=== PATIENT | male | born 1965 | race Caucasian/White ===

== ENCOUNTER 2017-03-05 08:00 | Day surgery (SDC) | payer BC ==
[~2017-03-05 08:00] MED LIST: Lactated Ringers 1,000 ML IV SCH; Propofol 200 MG/20 ML SDV ONE; Sodium Chloride 0.9% 10 ML Syringe FLUSH PRN
[2017-03-05] MEDS ORDERED: Propofol 200 MG/20 ML SDV ONE ×2 (08:40→09:07)
--- NOTE | 2017-03-05 09:11 | PCM.PN ---
- General Info Date of Service: 03/05/17 - Review of Systems Systems Review Comment:: 51 y/o male here for initial screening colonoscopy. He denies any family history of colon cancer. He denies any recent bowel symptoms. I have discussed the proposed colonoscopy with the patient. Risks such as but not limited to bleeding and GI injury discussed and he agrees to proceed. The patient has had no recent significant changes to his health status. - Patient Data Vitals - Most Recent: Last Vital Signs Temp 97.8 F 03/05/17 08:27 Pulse 60 03/05/17 08:27 Resp 20 03/05/17 08:27 BP 120/85 03/05/17 08:27 Pulse Ox 98 03/05/17 08:27 Weight - Most Recent: 79.379 kg Med Orders - Current: Current Medications Lactated Ringer's (Ringers, Lactated) 1,000 mls @ 125 mls/hr IV ASDIRECTED FILEMON Last Admin: 03/05/17 08:48 Dose: 125 mls/hr Sodium Chloride (Saline Flush) 10 ml FLUSH ASDIRECTED PRN PRN Reason: Keep Vein Open Discontinued Medications Propofol (Diprivan 20 Ml) Confirm Administered Dose 400 mg .ROUTE .STK-MED ONE Stop: 03/05/17 07:58 Propofol (Diprivan 20 Ml) Confirm Administered Dose 200 mg .ROUTE .STK-MED ONE Stop: 03/05/17 08:41 - Problem List Review Problem List Initiated/Reviewed/Updated: Yes - My Orders Last 24 Hours: My Active Orders 03/05/17 08:00 Patient Status [ADT] Routine Peripheral IV Care [RC] . DIRECTED Verify Patient Consent Obtain [RC] ASDIRECTED Lactated Ringers [Ringers, Lactated] 1,000 ml IV ASDIRECTED Sodium Chloride 0.9% [Saline Flush] 10 ml FLUSH ASDIRECTED PRN Peripheral IV Insertion Adult [OM.PC] Routine - Assessment Assessment:: Colon cancer Screening - Plan Plan:: Colonoscopy
--- NOTE | 2017-03-05 09:49 | PCM.OPNOTE ---
- General Post-Op/Procedure Note Date of Surgery/Procedure: 03/05/17 Operative Procedure(s): Colonoscopy with Polypectomy Findings: Small Rectal Polyps Moderate Diverticulosis Pre Op Diagnosis: Colon Cancer Screening Post-Op Diagnosis: Polyps. Diverticulosis Anesthesia Technique: MAC Primary Surgeon: Kenji Gant Pathology: Rectal Polyp Output, Urine Amount: 0 EBL in mLs: 0 Complications: None Condition: Good Free Text/Narrative:: Intake & Output 03/04/17 03/05/17 03/05/17 22:59 06:59 14:59 Intake Total 400 Balance 400
[2017-03-05 13:54] VITALS: BP 116/77
--- NOTE | 2017-03-05 14:05 | OR ---
Date of Procedure: 03/05/2017 PREOPERATIVE DIAGNOSIS: Colon cancer screening. POSTOPERATIVE DIAGNOSES: 1. Rectal polyps. 2. Diverticulosis. OPERATION PERFORMED: Colonoscopy with polypectomy. INDICATIONS FOR SURGERY: This 51-year-old male presents for his initial screening colonoscopy. He denies any recent colon symptoms or family history of colon cancer. FINDINGS: Two small polyps were noted in the rectum, these are 4 to 5 mm in size and located 5 to 10 cm from the anal verge. The patient has a moderate degree of diverticulosis, which is concentrated mainly in the left colon, also there are some scattered diverticula on the right side as well. This appears to be without acute inflammation or other complication. PROCEDURE IN DETAIL: The patient was taken to the operating room. He was given intravenous sedation and with him in the left lateral decubitus position, digital rectal exam was performed showing no rectal masses. The Olympus colonoscope was inserted into the rectum. Retroflexed examination of the rectal canal was performed. In the rectum, the above-described polyps were identified. These were removed with a cautery snare. The smaller of the polyps was completely destroyed with cautery. Upon removal of the larger one, a small amount of tissue was able to be retrieved and was submitted to pathology. Both polyps were completely removed with the procedure. The scope was advanced under direct visualization through the entire length of the colon until cecum is reached. Cecal acquisition was confirmed by noting the normal internal cecal anatomy and identifying the light to transilluminate the abdominal wall in the right lower quadrant. After examining the cecum, the scope was slowly withdrawn sequentially re-examining the colonic segments until the entire colon and rectum had been fully examined. With no sign of bleeding or any other complication, the scope was removed and the patient was taken from the operating room in satisfactory condition. ESTIMATED BLOOD LOSS: Zero. COMPLICATIONS: None. PROGNOSIS: Good. PARI Gant MD /[id number] MTDD
== END 2017-03-05 10:47 | disposition home or self-care (01) ==
LOC: LL.SDS 08:00
PROVIDERS: ATTEND Surgery
DX: Z12.11 Encounter for screening for malignant neoplasm of colon (principal); D12.8 Benign neoplasm of rectum; K57.30 Diverticulosis of large intestine without perforation or abscess without bleeding; F41.9 Anxiety disorder, unspecified; Z79.899 Other long term (current) drug therapy
CPT/HCPCS: 45385; J2704; J7120

== ENCOUNTER 2021-07-29 08:53 | Emergency (ER) | payer OTHER, BC ==
[2021-07-29] MEDS ORDERED: Lidocaine 1% 5 ML VIAL INJECT ONE (09:19)
[2021-07-29] MEDS ORDERED: Bacitracin/Neomycin/Polymyxin B Oint 0.9 GM U/D Packet TOP ONE (09:23)
[2021-07-29 09:56] VITALS: BP 142/95; PULSE 82
[2021-07-29] MEDS ORDERED: Acetaminophen 500 MG Tab PO ONE (10:18)
== END 2021-07-29 10:30 | disposition home or self-care (01) ==
LOC: LL.ED 08:53
DX: S61.211A Laceration without foreign body of left index finger without damage to nail, initial encounter (principal); I10 Essential (primary) hypertension; W26.0XXA Contact with knife, initial encounter
CPT/HCPCS: 12001; 99282; 99283; A9270